=== PATIENT | male | born 1995 | race Caucasian/White ===

== ENCOUNTER 2023-01-12 09:08 | Emergency (ER) | payer OTHER ==
[2023-01-12] MEDS ORDERED: ACETAMINOPHEN 325 MG TABLET (FP) PO ONE (09:15)
[2023-01-12 09:18] VITALS: BP 128/86; PULSE 70; RESP 15; TEMP 98.5; BMI 28.4
[2023-01-12] MEDS ORDERED: ACETAMINOPHEN 500 MG TABLET (FP) ONE (09:19)
[2023-01-12] MEDS ORDERED: DIPHTH,PERTUSS(ACELL),TET 0.5 ML DISP.SYRIN IM ONE ×2 (09:19→09:21)
== END 2023-01-12 11:29 | disposition home or self-care (01) ==
LOC: FER 09:08
PROC: 2W38X1Z Immobilization of Right Upper Extremity using Splint (ICD-10-PCS; principal; 2023-01-12)
DX: S50.311A Abrasion of right elbow, initial encounter (principal); S52.124A Nondisplaced fracture of head of right radius, initial encounter for closed fracture; W01.0XXA Fall on same level from slipping, tripping and stumbling without subsequent striking against object, initial encounter; Y93.66 Activity, soccer
CPT/HCPCS: 29105; 29505; 73070-TC-RT-FY; 90715; 99283-25